=== PATIENT | female | born 1970 | race Caucasian/White ===

== ENCOUNTER → 2020-03-22 | Outpatient (CLI) | payer BC, MEDICARE ==
[~2020-03-22] VITALS: Ht 167.6 cm; Wt 85.3 kg
[~2020-03-22] MED LIST: BACLOFEN10 MG PO; BACLOFEN20 MG PO; CARAFATE1 GM PO; DEXILANT60 MG PO; ETODOLAC200 MG PO; FETZIMA40 MG PO; GLIPIZIDE ER10 MG PO; GLUCOPHAGE500 MG PO; JANTOVEN2 MG PO; LACTULOSE PO; LACTULOSE10 GM/151 PO; LOPRESSOR50 MG PO; MONTELUKAST SOD10 MG PO; NEURONTIN800 MG PO; OMEPRAZOLE40 MG PO; PRAVASTATIN SOD40 MG PO; PROMETHAZINE HC25 M1 PO; QUETIAPINE FUMA50 MG PO; SEROQUEL100 MG PO; TOPAMAX50 MG PO; WARFARIN SODIUM1 MG PO; WARFARIN SODIUM5 MG PO; [UNRECOGNIZED DRUG - OTHER] PO
[2020-03-22 12:46] LABS: BUN/CREATININE RATIO 7 (0-10)
[2020-03-22 13:30] LABS: BODY FLUID SOURCE ASCITES; MONONUCLEAR CELLS 95.9 (75-100); POLYMORPHONUCLEAR % 4.1 (0-25); RBC (AUTOMATED) 200 (0-100000); WBC (AUTOMATED) 170 (0-500)
[2020-03-22 14:05] LABS: TOTAL PROTEIN, BODY FLUID 1.1 gm/dL
== END ==
LOC: OPSV 10:00
PROVIDERS: Internal Medicine Gastroenterology
DX: R18.8 Other ascites (principal); K75.81 Nonalcoholic steatohepatitis (NASH); Z79.899 Other long term (current) drug therapy
CPT/HCPCS: 80048; 84157; 87070; 87205; 89051; 96365; P9047

== ENCOUNTER → 2020-10-07 | Outpatient (CLI) | payer BC, MEDICARE | LOC: OPSV 10:00 | DX: K75.81 Nonalcoholic steatohepatitis (NASH) (principal); K74.60 Unspecified cirrhosis of liver; R18.8 Other ascites; Z53.8 Procedure and treatment not carried out for other reasons | CPT/HCPCS: G0463 ==

== ENCOUNTER → 2021-07-01 | Outpatient (CLI) | payer BC, MEDICARE | LOC: WCC 07:29 | DX: E11.621 Type 2 diabetes mellitus with foot ulcer (principal); L97.522 Non-pressure chronic ulcer of other part of left foot with fat layer exposed; I10 Essential (primary) hypertension; K74.60 Unspecified cirrhosis of liver; R60.1 Generalized edema; K72.90 Hepatic failure, unspecified without coma; Z87.891 Personal history of nicotine dependence; Z88.0 Allergy status to penicillin; Z88.5 Allergy status to narcotic agent; Z88.1 Allergy status to other antibiotic agents; Z79.4 Long term (current) use of insulin; Z79.899 Other long term (current) drug therapy ==

== ENCOUNTER → 2021-07-08 | Outpatient (CLI) | payer BC, MEDICARE | END | disposition home or self-care (01) | LOC: WCC 08:44 | DX: E11.621 Type 2 diabetes mellitus with foot ulcer (principal); L97.522 Non-pressure chronic ulcer of other part of left foot with fat layer exposed; I10 Essential (primary) hypertension; K74.60 Unspecified cirrhosis of liver; R60.1 Generalized edema; K72.90 Hepatic failure, unspecified without coma; Z79.4 Long term (current) use of insulin; Z79.899 Other long term (current) drug therapy ==

== ENCOUNTER → 2021-07-16 | Outpatient (CLI) | payer BC, MEDICARE | LOC: WCC 07:41 | DX: S51.001A Unspecified open wound of right elbow, initial encounter (principal); I10 Essential (primary) hypertension; K74.60 Unspecified cirrhosis of liver; E11.622 Type 2 diabetes mellitus with other skin ulcer; R60.1 Generalized edema; K72.90 Hepatic failure, unspecified without coma; S91.302D Unspecified open wound, left foot, subsequent encounter; M19.90 Unspecified osteoarthritis, unspecified site; E11.40 Type 2 diabetes mellitus with diabetic neuropathy, unspecified; X58.XXXA Exposure to other specified factors, initial encounter; Z79.4 Long term (current) use of insulin; Z88.1 Allergy status to other antibiotic agents; Z88.5 Allergy status to narcotic agent; Z88.0 Allergy status to penicillin ==

== ENCOUNTER → 2021-07-24 | Outpatient (CLI) | payer BC, MEDICARE | LOC: WCC 08:31 | DX: S51.001A Unspecified open wound of right elbow, initial encounter (principal); I10 Essential (primary) hypertension; K74.60 Unspecified cirrhosis of liver; E11.622 Type 2 diabetes mellitus with other skin ulcer; R60.1 Generalized edema; K72.90 Hepatic failure, unspecified without coma; S91.302D Unspecified open wound, left foot, subsequent encounter; M19.90 Unspecified osteoarthritis, unspecified site; E11.40 Type 2 diabetes mellitus with diabetic neuropathy, unspecified; X58.XXXA Exposure to other specified factors, initial encounter; Z79.4 Long term (current) use of insulin; Z88.1 Allergy status to other antibiotic agents; Z88.5 Allergy status to narcotic agent; Z88.0 Allergy status to penicillin ==

== ENCOUNTER → 2021-08-06 | Outpatient (CLI) | payer BC, MEDICARE | LOC: WCC 07:35 | DX: S51.001D Unspecified open wound of right elbow, subsequent encounter (principal); E11.40 Type 2 diabetes mellitus with diabetic neuropathy, unspecified; I10 Essential (primary) hypertension; K74.60 Unspecified cirrhosis of liver; K72.90 Hepatic failure, unspecified without coma; R60.1 Generalized edema; Z79.4 Long term (current) use of insulin | CPT/HCPCS: G0463 ==